=== PATIENT | male | born 1980 | race Caucasian/White ===

== ENCOUNTER 2018-04-29 08:09 | Emergency (ER) | payer OTHER ==
[2018-04-29] MEDS ORDERED: NS 1,000 ML IV ONE (08:37)
[2018-04-29] MEDS ORDERED: AMPICILLIN/SULBACTAM 3 GM in NS 100 ML IV ONE (08:39)
--- NOTE | 2018-04-29 08:42 | EDPHY ---
HPI/HX/ROS/PE/MDM Narrative: CHIEF COMPLAINT: Facial swelling, tooth pain HISTORY OF PRESENT ILLNESS: The patient is a 37 y/o male arriving in [employer] custody [facility] complaining of right upper tooth pain for the last two days now associated with facial swelling since last night. The penitentiary staff injected what sounds like lidocaine into the affected area this morning. He has a history of methamphetamine use and prior dental decay. He denies difficulty swallowing, dyspnea, ear pain, or fever. No history of diabetes or immunosuppression. No chills, chest pain, shortness of breath, palpitations, vomiting, diarrhea, urinary complaints, headache, lightheadedness. REVIEW OF SYSTEMS: Aside from elements discussed in the HPI, a comprehensive 10-point review of systems was reviewed and is negative. PAST MEDICAL HISTORY: Substance abuse history. SOCIAL HISTORY: Smoker. Alcohol use. In [facility] for the last week. History of methamphetamine use. [facility] RN: [phone] VITAL SIGNS: Reviewed by me GENERAL: Well-developed, well-nourished, resting comfortably in no respiratory distress. HEENT: Atraumatic. Eyes: No icterus, no injection. Mouth: moist mucous membranes. No erythema or lesions. Necrotic right lateral incisor, fractured tooth posterior to this, widespread dental decay. Airway patent. Face: Swelling extending from right upper lip to periorbital area, area is nontender without fluctuance. Neck: supple with no adenopathy. LUNGS: Clear to auscultation bilaterally, no wheezes, rhonchi or rales. CARDIAC: Regular rate and rhythm, no rubs, murmurs or gallops. ABDOMEN: Soft, nontender, nondistended, bowel sounds normal. BACK: No CVA tenderness. EXTREMITIES: No trauma. No edema. Range of motion is normal throughout. NEURO: Alert and oriented, grossly nonfocal. SKIN: Warm and dry, no rash. PSYCHIATRIC: Normal mentation, no agitation. Portions of this note were transcribed by a medical laboratory scientist. I personally performed a history, physical exam, medical decision making, and confirmed accuracy of information the transcribed note. ED Course: This is a 37 y/o male with a history of methamphetamine abuse who [facility] the [facility] with right upper tooth pain and associated facial swelling. He has a necrotic right upper lateral incisor on exam and soft tissue swelling without fluctuance extending from his right upper lip to the level of his eye. Airway is patent. No evidence of systemic infetion. Plan for IV and treatment. 1L IV NS , 15mg IV Toradol, and 3gm IV Unasyn ordered. Patient will be discharged with script for Augmentin and NSAID instructions and dentist referral. Return precautions discussed. MDM: Differential diagnoses for the patient's symptom complex was considered including but not limited to cellulitis, facial abscess, dental caries, sinusitis. - Data Points Laboratory Results: Laboratory Results 04/29/18 08:23 04/29/18 08:23 Medications Given: Discontinued Medications Sodium Chloride (Ns) 1,000 mls @ 0 mls/hr IV ONCE ONE; Wide Open PRN Reason: Protocol Stop: 04/29/18 08:38 Last Admin: 04/29/18 09:13 Dose: 1,000 mls Ampicillin Sodium/Sulbactam (Sodium 3 gm/ Sodium Chloride) 100 mls @ 200 mls/ hr IV EDNOW ONE PRN Reason: Protocol Stop: 04/29/18 09:08 Last Admin: 04/29/18 09:12 Dose: 100 mls Ketorolac Tromethamine (Toradol) 15 mg IVP EDNOW ONE Stop: 04/29/18 09:20 Last Admin: 04/29/18 09:35 Dose: 15 mg General Time Seen by Provider: 04/29/18 08:19 Initial Vital Signs: Initial Vital Signs Temperature (C) 36.7 C 04/29/18 08:10 Heart Rate 77 04/29/18 08:10 Respiratory Rate 16 04/29/18 08:10 Blood Pressure 135/86 H 04/29/18 08:10 O2 Sat (%) 100 04/29/18 08:10 O2 Delivery Mode Room Air Allergies/Adverse Reactions: codeine Allergy (Verified 04/29/18 08:10) Home Medications: Medication Instructions Recorded Amoxicillin/Clavulanate Pot 875 mg PO BID #14 tab 04/29/18 [Augmentin 875 MG TAB (*)] Departure - Departure Disposition: Home, Routine, Self-Care Clinical Impression: Tooth infection, Facial cellulitis Condition: Good Instructions: Amoxicillin/Clavulanate Potassium (By mouth), Toothache (ED) Additional Instructions: 1. Take Augmentin as prescribed. Be sure to complete the entire prescription even if symptoms have resolved. 2. Tylenol and ibuprofen as directed for pain and inflammation over the next few days. 3. Follow up with dentist as soon as you are able to. 4. Return for inability to swallow, difficulty breathing, unimproved infection. Adult Pain & Fever Control: We recommend Acetaminophen (Tylenol) and Ibuprofen (Motrin,Advil) for pain and fever control. When fever is high or pain severe, both drugs can be used at the same time, but at different intervals. Please note the time differences. Your dose is: Acetaminophen 1000mg every 4 to 6 hours Ibuprofen 600mg every 8 hours with food Note: do not take Acetaminophen with Hydrocodone (Vicodin, Lortab) or Oxycodone (Percocet). These medications also contain Acetaminophen. No more than 3000mg of Acetaminophen should be taken in 24 hours (for an adult). Referrals: [facility] [Outside] - As per Instructions Prescriptions: Amoxicillin/Clavulanate Pot [Augmentin 875 MG TAB (*)] 875 mg PO BID #14 tab Report Scribed for: Elizabeth Khan Report Scribed by: Rae Malloy Date of Report: 04/29/18 Time of Report: 09:27
[2018-04-29 08:44] LABS: PLATELET COUNT 362 10^3/uL (150-400)
[2018-04-29] MEDS ORDERED: KETOROLAC 15 MG/1 ML SDV IVP ONE (09:19)
[2018-04-29 10:06] VITALS: BP 129/81
== END 2018-04-29 10:18 | disposition home or self-care (01) ==
LOC: EEVIPCON 08:09
DX: K04.7 Periapical abscess without sinus (principal); L03.211 Cellulitis of face; E86.9 Volume depletion, unspecified
CPT/HCPCS: 96365; J0295; J1885